=== PATIENT | female | born 1975 | race Caucasian/White ===

== ENCOUNTER 2019-08-16 20:03 | Emergency (ER) | payer SELFPAY ==
[2019-08-16 20:04] VITALS: BP 182/107; PULSE 76; RESP 16; TEMP 36.3; O2SAT 97; BMI 30.1
--- NOTE | 2019-08-16 20:27 | EKG12_ITS ---
Test Reason : HEADACHE Blood Pressure : / mmHG Vent. Rate : 069 BPM Atrial Rate : 069 BPM P-R Int : 120 ms QRS Dur : 084 ms QT Int : 382 ms P-R-T Axes : 000 042 034 degrees QTc Int : 409 ms Normal sinus rhythm Normal ECG Confirmed by CHUN GUEVARA, JUANY ([id number]), electronic news gathering editor JOJO MAZA ([id number]) on 08/19/2019 1:02:52 PM Referred By: BB/KYLEE Confirmed By:JUANY MCCOLLUM MD
--- NOTE | 2019-08-16 20:27 | CT_ITS ---
History: LT EYE DROOP TODAY. CASIANO and fever x 3 days. On ATB for sinus infection EXAMINATION: CT Head or Brain W/O Contrast Injection TECHNIQUE: Multiple axial images were obtained of the head without intravenous contrast. A radiation dose optimization technique was used for this scan. IV Contrast dosage and agent: COMPARISON: None FINDINGS: BRAIN PARENCHYMA: No intra- or extra-axial hemorrhage. No evidence of acute infarct. No intracranial mass or mass effect. There is preservation of the crews/white matter interface. Posterior fossa structures are unremarkable. CSF SPACES: Appropriate for age. No hydrocephalus. Basal cisterns are patent. CALVARIUM, SKULL BASE, PARANASAL SINUSES AND MASTOID AIR CELLS: Clear. No discrete lytic or blastic abnormalities. ORBITS: Both globes, extraocular muscles, optic nerves and retrobulbar fat appear unremarkable. ASPECTS Score for Acute Strokes: 10 CT/Brain/Head without Contrast IMPRESSION: Negative Brain CT without contrast. Individualized dose optimization techniques were used for this CT. at 2146 Reported and signed by: Indra Brown MD Electronically Signed: Indra Brown MD at 21:45 EDT Tel , Service support ,
--- NOTE | 2019-08-16 20:29 | ED.VIS.HA ---
History of Present Illness Chief Complaint: Headache Informant: Patient, Significant Other Onset: Days - 9 Context: Gradual, Onset Timing: Continuous Quality: Dull Location: right fronto-parietal, radiating into right ear area Current Severity: Moderate Maximum Severity: Moderate Associated Symptoms: Fever, Nausea, Vomiting, Sinus Pressure - without rhinorrhea/congestion, Numbness - left lower lip feels swollen, Blurred Vision, Photophobia. Negative for: Sore Throat, Tingling, Visual Loss Injury: - - no injury/fall Narrative: Patient started having a headache 9 days ago. It has been unrelenting and not responding to [id number] medications. She had felt febrile subjectively and having chills, but over time she would take her temperature it did not show a fever except for 1 day when it was up to 100.9. She states for the most part she was taken Tylenol and ibuprofen and Aleve and decongestants something she was suppressing actual temperatures, possibly. 1 week ago today, she started having difficulty closing her right eye and moving her right forehead, some blurry vision even when using her contacts, her eye is dry, and some pain on the right side of her face radiating over toward her ear. She denies any trouble speaking, she has some mild numbness off and on in her left lower lip only. No neurologic symptoms in her arms or legs. No confusion, neck stiffness. No cough or shortness of breath. 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 He has not been tested and neither has she. Past Medical History - Allergies and Home Meds Allergies/Adverse Reactions: Allergies Sulfa (Sulfonamide Antibiotics) Allergy (Verified 08/16/19 20:06) Anaphylaxis acetaminophen [From Darvocet-N] Adverse Reaction (Verified 08/16/19 20:06) Rash ibuprofen Adverse Reaction (Verified 08/16/19 20:06) Rash propoxyphene [From Darvocet-N] Adverse Reaction (Verified 08/16/19 20:06) Rash Primary Care Physician: Mariano Reddy MD [Primary Care Provider] - Past Medical History: None Lives: Spouse/ Significant Other Smoking Status: Never smoker Drugs: None Review of Systems General: Reports: Chills, Fever, Malaise. Denies: Sweats Eyes: Reports: Blurred Vision - bilaterally. Denies: Diplopia ENT: Reports: Right ear pain. Denies: Rhinorrhea, Sore throat Cardiovascular: Denies: Chest pain, Palpitations Respiratory: Denies: Dyspnea, Cough, Dyspnea on exertion Gastrointestinal: Reports: Nausea, Vomiting. Denies: Abdominal pain, Diarrhea, Melena, Hematochezia Genitourinary: Denies: Dysuria, Hematuria, Frequency Musculoskeletal: Denies: Myalgias, Neck pain, Back pain, Extremity Pain Skin: Denies: Rash, Wounds Neurological: Reports: Headache. Denies: Weakness, Numbness Physical Exam Vital Signs/Narrative: Vital Signs Temp Pulse Resp BP Pulse Ox 08/16/19 20:04 97.4 F L 76 16 182/107 H 97 Inital Vital Signs reviewed: Yes General: Well nourished, Well developed, - - NAD Head: NC, AT. Negative for: Temporary Artery Tenderness, Vesicular Rash, Sinus Tenderness Eyes: Perrl, EOMI, - - unable to fully close R eye. Normal conjunctivae bilaterally. Mildly photophobic. ENT: Moist mucous membranes, No rhinorrhea, TM's clear. Negative for: Sinus tenderness Neck: Supple, No Lymphadenopathy, Nontender, No Meningismus Cardiovascular: Regular rate, Regular rhythm, No murmurs Respiratory: No distress, CTA bilaterally, Chest nontender Abdomen: Soft, Nontender, Nondistended, Normal bowel sounds Back: Nontender, Normal Inspection Extremities: Nontender, No edema Skin: Normal color, No rash, No Trauma Neuro: Alert, Oriented x3, Normal Strength, Normal Sensation, Normal DTR, Normal Gait, Weakness - Right forehead and eyelid, but no lower facial droop appreciated. Otherwise, cranial nerves are intact. Psychological: Normal affect, Normal Mood Diagnostic/Tx/Re-eval Chest X-Ray - ED: 1 View, Read by ED Physician, Normal, Heart, Lungs, Mediastinum, Bony Structures, No Acute Disease Impressions Brain CT 08/16/19 20:27 IMPRESSION: Negative Brain CT without contrast. Individualized dose optimization techniques were used for this CT. at 2146 Reported and signed by: Indra Brown MD Electronically Signed: Indra Brown MD at 21:45 EDT Tel , Service support , 08/16/19 20:27 Brain/Head without Contrast [CT] Stat 08/16/19 20:28 Chest 1 View (Portable) [RAD] Stat Laboratory Results 08/16/19 08/16/19 20:40 20:40 WBC 6.1 RBC 4.23 Hgb 9.4 L Hct 30.9 L MCV 73.0 L MCH 22.2 L MCHC 30.4 L RDW Std Deviation 41.2 RDW Coeff of Eris 15.9 H Plt Count 420 MPV 9.7 Immature Gran % (Auto) 0.300 Neut % (Auto) 59.3 Lymph % (Auto) 28.2 [place] % (Auto) 10.1 H Eos % (Auto) 1.8 Baso % (Auto) 0.3 Absolute Neuts (auto) 3.6 Absolute Lymphs (auto) 1.73 Nucleated RBC % 0 Sodium 139 Potassium 3.6 Chloride 106 Carbon Dioxide 28.0 Anion Gap 5 BUN 17 Creatinine 0.86 Estim Creat Clear Calc 64.65 Est GFR (MDRD) Af Amer 91 Est GFR (MDRD) Non-Af 75 BUN/Creatinine Ratio 19.8 Glucose 95 Calcium 8.7 Troponin I < 0.015 - Rhythm Strip Rhythm Strip: Sinus Rhythm Rate: 70 Ectopy: None - EKG Initial EKG Interpretation: Sinus Rhythm, No Acute Injury Pattern - normal EKG - Medical Decision Making 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 Also since she presents during the coronavirus national emergency declaration, and at a point when positive cases have been spiking throughout the country, I sent a COVID-19 swab although she certainly does not have a typical case if she has it. Labs and CT are unremarkable. After Reglan, her face pain and headache are almost completely gone and she feels better but she still has the partial right facial paralysis. I think this is Liang's palsy, stroke cannot cause the forehead to be paralyzed on half of it. 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 Liang's can often have headaches. Since she has had the symptoms for well over 72 hours, steroids and/or antivirals are not indicated. She is reassured, given a prescription for Reglan, and advised to follow-up with her doctor. They are comfortable with that plan. Will discharge the patient after the COVID-19 test returns. ED Disposition - Plan for ED Patient: Disposition: Home or Assisted Living Diagnosis: Liang's palsy, Intermittent fever Instructions: ED CEPHALGIA Tension Headache, ED Fouke Palsy Prescriptions: Metoclopramide [Reglan] 10 mg PO Q6H PRN #20 tab PRN Reason: Headache or nausea Prescription Printed Referrals: Mariano Reddy MD [Primary Care Provider] - 1 Week if not improving
[2019-08-16] MEDS: Metoclopramide 10 MG/2 ML Vial IV (20:41)
[2019-08-16 20:46] VITALS: BP 123/90; PULSE 72; RESP 18; O2SAT 98
[2019-08-16 21:03] LABS: Absolute Lymphocyte Count 1.73 X10^3/uL (0.83-4.51); Absolute Neutrophil Count 3.6 X10^3/uL (2.0-7.7); Basophil# 0.02 X10^3/uL; Basophil% 0.3 % (0-1); Eosinophil# 0.11 X10^3/uL; Eosinophils% 1.8 % (0-5); Hematocrit 30.9 % (37-47); Hemoglobin 9.4 g/dL (12.0-15.0); Lymphocyte # 1.73 X10^3/ul (4.0); Lymphocyte % 28.2 % (19-41); Mean Corp Hgb Conc 30.4 g/dL (32-36); Mean Corpuscular Hgb 22.2 pg (27.0-32.0); Mean Platelet Vol. 9.7 fl (6.2-12.0); Monocyte# 0.62 X10^3/uL; Monocyte% 10.1 % (0-10); NRBC Flagged by Analyzer 0 % (0-5); Neutrophil # 3.64 X10^3/uL (2.7-7.7); Neutrophil % 59.3 % (47-70); Platelet Count 420 K/mm3 (150-450); RBC Distribution Width CV 15.9 % (11.6-14.6); RBC Distribution Width SD 41.2 fl (35.1-43.9); Red Blood Count 4.23 M/mm3 (4.2-5.4); White Blood Count 6.1 K/mm3 (4.4-11.0)
[2019-08-16 21:06] VITALS: BP 125/98; PULSE 75; RESP 16; TEMP 36.9; O2SAT 97
--- NOTE | 2019-08-16 21:10 | RAD_ITS ---
HISTORY: LEFT EYE DROOP, HEADACHE, FEVER EXAM: XR Chest 1 View: COMPARISON: None FINDINGS: # of images incl. paperwork: 1 Lungs are clear. Heart is not enlarged. No acute osseous pathology perceived. Pulmonary vascularity is distinct. No effusions. RAD/Chest 1 View (Portable) IMPRESSION: Normal. at 2213 Reported and signed by: Indra Brown MD Electronically Signed: Indra Brown MD at 22:12 EDT Tel , Service support ,
[2019-08-16 21:17] LABS: Anion Gap 5 (5-15); BUN 17 mg/dL (7-18); BUN/Creat Ratio 19.8 RATIO (10-20); Calcium,Total 8.7 mg/dL (8.5-10.1); Chloride 106 mmol/L (98-107); Creatinine, Serum 0.86 mg/dL (0.55-1.02); EST Glomerular Filtration Rate 75 mL/min (>60); Est Glom Filt Rate - Afr Amer 91 mL/min (>60); Estimated Creatinine Clearance 64.65 ml/min; Glucose 95 mg/dL (74-106); Potassium 3.6 mmol/L (3.5-5.1); Sodium Level 139 mmol/L (136-145)
[2019-08-16 21:21] VITALS: BP 125/98; PULSE 71; RESP 13; O2SAT 98
[2019-08-16 22:02] VITALS: BP 133/94; PULSE 66; RESP 15; TEMP 36.9; O2SAT 98
[2019-08-16 22:05] LABS: Bacteria 0 SEEN /hpf (None Seen); Mucous, Urine 0 SEEN /hpf (<or=2+); Red Blood Cells-Urine 0 SEEN /hpf (0-5); White Blood Cells 0 SEEN /hpf (0-5)
[2019-08-16 22:24] LABS: Color, Urine Yellow (Yellow); Glucose, Dipstick Normal (Normal); Ketone-Dipstick 5 mg/dl (Negative); Leukocyte Esterase-Dipstick Negative /ul (Negative); Nitrite-Dipstick Negative (Negative); Occult Blood-Urine Negative /ul (Negative); Protein-Dipstick Negative (Negative); Specific Gravity, Urine 1.025 (1.002-1.030); Urine Bilirubin Dipstick Negative (Negative); Urine Clarity Sl. Cloudy (Clear); Urine Urobilinogen Normal (Normal)
[2019-08-16 22:40] LABS: Squamous Epithelial Cells - UA 0-5 SEEN /hpf (5-10)
== END 2019-08-16 22:32 | disposition home or self-care (01) ==
PROVIDERS: Emergency Provider Emergency Medicine; PCP Family Medicine
DX: G51.0 Bell's palsy (principal); R50.9 Fever, unspecified; Z88.2 Allergy status to sulfonamides; Z88.6 Allergy status to analgesic agent
CPT/HCPCS: 70450; 71045; 80048; 81001; 84484; 85025; 87635; 93005; 96374; 99283; G2023; A4216; U0003